=== PATIENT | male | born 1940 | race Caucasian/White ===

== ENCOUNTER 2017-10-16 11:02 | Outpatient (CLI) | payer MEDICARE, OTHER ==
[~2017-10-16] VITALS: Ht 190.5 cm; Wt 92.7 kg
--- NOTE | ~2017-10-16 | TEE ---
PATIENT:SOUTH LEVY MEDICAL RECORD: [id number] LOCATION:D.[facility] AGE OF PATIENT: 77 ADMISSION DATE: 10/16/17 SEX: M REFERRING PHYSICIAN: INTERPRETING PHYSICIAN: NATHAN GREEN MD TRANSESOPHAGEAL ECHOCARDIOGRAM Date: 10/16/17 ESPERANZA CHARGE Y INDICATIONS: ATRIAL FIB, ASSESS FOR CLOTS PREMEDICATIONS: PATIENT'S RESPONSE PROCEDURE DOPPLER MEASUREMENTS: LVIT LA PA RA LVOT RVOT Asc. Ao AV Gradient Peak AV Mean AV Area MV Gradient Peak MV Mean MV Area INTERPRETATION: Doppler: 2-D: NO CLOTS, COLOR FLOW DOPPLER TRACE MR,AI NORMAL SALINE STUDY: MISCELLANOUS: DIAGNOSIS: PLAN: Radio Survey Worker:3 Dr. Jackson Singing Telegram Performer: James HUI COMMENTS: DATE OF SERVICE: 10/16/2017 Transesophageal Note After general sedation via TIVA via anesthesia, transesophageal Omniplane probe was placed into the distal esophagus and proximal stomach without difficulty. FINDINGS: LVH present. LV internal dimension is normal. Wall motion is normal. EF is greater than or equal to 50-55%. Aortic valve is well visualized TRANSESOPHAGEAL ECHOCARDIOGRAM REPORT [id number] SOUTH LEVY with good valve excursion and trivial AI. Left atrium appears normal. Left atrial appendage is well visualized without evidence of thrombus. Doppler interrogation in this area shows good ____ waves. Right-sided chambers appeared grossly normal. Trivial TR ____. IMPRESSION: Proceed to cardioversion. TRANSINT:[id number] Voice Confirmation ID: [id number] DOCUMENT ID: [id number] at 0826 CC: [id number] DICTATION DATE: 10/16/17 1327 JACK WINDER: 10/16/17 1340 DEP CLI 10/16/17 [place] [id number] [place] [id number]
--- NOTE | ~2017-10-16 | OP ---
PATIENT NAME: SOUTH LEVY MEDICAL RECORD: [id number] :36 LOCATION:D.[facility] ADMISSION DATE: SURGEON: NATHAN GREEN MD DATE OF OPERATION: 10/16/2017 PROCEDURE: Cardioversion. DESCRIPTION OF PROCEDURE: After general sedation via TIVA via anesthesia, single synchronized shock with 200 joules successful in restoring atrial fibrillation to normal sinus rhythm. IMPRESSION: Successful cardioversion note. COMPLICATIONS: None. DISPOSITION: To the floor, stable. TRANSINT:[id number] Voice Confirmation ID: [id number] DOCUMENT ID: [id number] NATHAN GREEN MD at 0826 CC: [id number] DICTATION DATE: 10/16/17 1328 CARE ADMINISTRATIVE TECH: 10/16/17 1344 [facility] CLI 10/16/[address] [id number]
--- NOTE | ~2017-10-16 | HEMODYNAMI ---
PATIENT:SOUTH LEVY MEDICAL RECORD: [id number] : 36 LOCATION:[facility] ADMISSION DATE: 10/16/17 Generatedon:10/16/201713:33 Patient name: SOUTH LEVY Patient #: [id number] SSN: DO B: 1940 Date of study: 10/16/2017 Page: Of Hemodynamic Procedure Report Patient Data Patient Demographics Procedure consent was obtained First Name: SOUTH Gender: Male Last Name: MILDRED : 1940 Middle Initial: G Age: 77 year(s) Patient #: [id number] Race: Unknown Additional ID: [id number] Contact details Address: [address] [place] [address] State: [place] City: [facility] Zip code: [address] Past Medical History Allergies: No known allergies Admission Admission Data Admission Date: 10/16/2017 Admission Time: 11:02 Lab Results Lab Result Date: 10/16/2017 Lab Result Time: 0:00 Biochemistry Name Units Result Min Max BUN mg/dl 10 --(-*--)-- 7 18 Creatinine mg/dl 1 --(--*-)-- 0.6 1.3 CBC Name Units Result Min Max Hemoglobin g/dl 16.2 --(--*-)-- 13.5 17.5 Procedure Procedure Types Cath Procedure Diagnostic Procedure Cardioversion External ESPERANZA Procedure Description Procedure Date Procedure Date: 10/16/2017 Procedure Start Time: 13:01 Procedure Staff Name Function Mumtaz Cook MD Performing Physician Gi Lopez RT Monitor Karon Hernandez RT Program Trainer Dimas De Guzman Additional personnel Alphonse Guan Licensed Pharmacist Procedure Data Cath Procedure Estimated blood loss: 0 ml Procedure Complications No complications Procedure Medications Medication Administration Route Dosage Oxygen NC 2 l/min Hurricaine [place] P.O. 1 Sprays Refer to Anesthesia Notes for Sedation Medications Hemodynamics Rest HGB: 16.2 (g/dl) Heart Rate: 75 (bpm) Snapshots Pre Cath Intra NCS Post Cath Vital Signs Time Heart Resp SPO2 etCO2 NIBP (mmHg) Rhythm Pain Sedation Rate (ipm) (%) (mmHg) Status Level (bpm) 13:12:26 69 16 95 0 122/95(105) A-Fib 0 (11) 10(A) , No pain 13:17:09 67 15 95 30.6 101/48(75) A-Fib 0 (11) 9(A) , No pain 13:22:08 72 33 98 0 Measuring A-Fib 0 (11) 9(A) , No pain 13:22:43 48 15 96 0 111/57(78) A-Fib 0 (11) 9(A) , No pain 13:27:52 48 14 97 0 96/55(72) SB 0 (11) 10(A) , No pain 13:32:29 51 18 0 89/52(72) SB 0 (11) 10(A) , No pain Medications Time Medication Route Dose Verified Delivered Reason Notes Effective ness by by 13:15:30 Oxygen NC 2 Mumtaz Pandya used for l/min [facility] procedure MD SANDERS 13:15:39 Hurricaine P[address] 1 Mumtaz Pandya Per [place] Sprays [facility] physician MD SANDERS 13:15:46 Refer to Mumtaz Pandya Anesthesia [facility] Notes for MD SANDERS Sedation Medications Procedure Log Time Note 13:02:18 Karon Hernandez RT(R) sent for patient. Start room use. 13:02:19 Time tracking: Regular hours (M-F 7:00 - 5:00) 13:02:23 Plan of Care:Hemodynamics will remain stable., Cardiac rhythm will remain stable., Comfort level will be maintained., Respiratory function will remain adequate., Patient/ family verbilizes understanding of procedure., Procedure tolerated without complication., Recovers from procedure without complications.. 13:02:40 Quick Combo opened to sterile field. 13:07:04 Patient received from Pre/Post Procedure Room to CCL 1 Alert and oriented. Tansferred to table in Supine position. 13:07:06 Warm blankets applied, and tan hugger turned on for patient comfort. 13:07:06 Correct patient and procedure confirmed by team. 13:07:07 Signed procedure consent form obtained from patient. 13:07:08 ECG and BP/O2 sat monitors applied to patient. 13:07:10 Full Disclosure recording started 13:11:39 H&P Date Dictated: 10/07/2017 Within 30 days and on chart., H&P Addendum completed by physician on day of procedure. (MUST COMPLETE FOR ALL OUTPATIENTS). 13:11:40 Vital chart was started 13:11:50 Baseline sample Acquired. 13:12:16 Rhythm: atrial fibrillation 13:12:20 Pre-procedure instructions explained to patient. 13:12:20 Pre-op teaching completed and patient verbalized understanding. 13:12:23 Family in waiting room. 13:12:25 Patient NPO since Midnight. 13:12:33 Patient allergic to No known allergies 13:12:34 Is the patient allergic to Iodine/contrast media? No. 13:12:36 Is patient on blood thinner?Yes 13:12:39 ACC The patient was administered the following blood thiners within the last 24 hours: Eliquis 13:12:41 Patient diabetic? No. 13:12:44 Previous problem with sedation/anesthesia? No ? 13:12:46 Snore? Yes 13:12:47 Sleep apnea? Yes 13:12:49 Deviated septum? No 13:12:50 Opens mouth fully? Yes 13:12:52 Sticks out tongue? Yes 13:12:53 Airway obstruction? No ? 13:12:55 Dentures? No ? 13:13:02 Patient pain scale 0/10 ?. 13:13:07 IV patent on arrival in left antecubital with 0.9% NaCl at [facility]. 13:13:14 Alarms reviewed by R. N. 13:13:15 Sharps counted by scrub and verified by R.N. 13:13:24 --------ALL STOP TIME OUT------ 13:13:25 Final Timeout: patient, procedure, and site verified with staff and physician. All members of the team are in agreement. 13:13:31 Physical assessment completed. ASA score P 2 - A patient with mild systemic disease as per Mumtza Cook MD. 13:13:34 Sedation plan: TIVA Medication:Propofol 13:13:37 Dimas De Guzman present and monitoring patient for TIVA. 13:14:34 Lab Result : BUN 10 mg/dl 13:14:34 Lab Result : Creatinine 1 mg/dl 13:14:34 Lab Result : Hemoglobin 16.2 g/dl 13:14:37 Lab results completed and on chart. 13:15:30 Oxygen 2 l/min NC was administered by Mumtaz Cook MD; used for procedure; 13:15:39 Hurricaine [place] 1 Sprays P.O. was administered by Mumtaz Cook MD; Per physician; 13:15:46 Refer to Anesthesia Notes for Sedation Medications was administered by Mumtaz Cook MD; ; 13:16:55 Alphonse Guan Miner present for ESPERANZA. 13:16:58 ESPERANZA started. 13:17:45 Quick combo pads placed on patients chest and back. 13:21:21 ESPERANZA completed. 13:21:59 Defibrillator synced and charged to 200 Joules. 13:22:05 Shock delivered. 13:23:33 Patient cardioverted to sinus bradycardia. 13:23:39 Procedure ended.(Physican Out) 13:24:43 Post-procedure physical assessment completed. ASA score P 2 - A patient with mild systemic disease as per Mumtaz Cook MD. 13:24:48 Post procedure rhythm: sinus bradycardia 13:24:50 Estimated blood loss: 0 ml 13:24:51 Post procedure instruction explained to patient.Patient verbalizes understanding. 13:24:52 Patient needs reinforcement of post procedure teaching. 13:25:19 Procedure and supply charges have been captured, reviewed, submitted and are correct. 13:25:22 Procedure Complication : No complications 13:32:39 Vital chart was stopped 13:32:40 See physician's report for complete and final results. 13:32:41 Report given to Pre/Post Procedure Room. 13:32:44 Patient transfered to Pre/Post Procedure Room with Bed. 13:32:48 End room use (Document Last) Device Usage Item Manufacture Quantity Catalog Hospital Part Current Minimal Lot# / Name Number Charge Number Stock Lizette Bautista al# Code Intio 1 [id number] Combo Signature Audit Glide Stage Time Signature Unsigned Intra-Procedure 10/16/2017 Karon Hernandez 1:33:12 PM RT(R) Signatures Monitor : Gi Signature : Counts RT Date : Time : [facility] [address] [place] [address]
[~2017-10-16 11:02] MED LIST: ARICEPT5 MG PO; CALCIUM 600 +1 EAC3 PO; DILANTIN100 MG PO; FISH OIL 1,0001 CA1; FLOMAX0.4 MG PO; MOBIC7.5 MG PO; NAMENDA10 MG PO; XYZAL5 MG PO; ZOCOR20 MG PO; ZOCOR40 MG PO
[2017-10-16] MEDS ORDERED: NAMENDA XR28 MG PO (11:47)
[2017-10-16] MEDS ORDERED: ARICEPT23 MG PO (11:48)
[2017-10-16] MEDS ORDERED: COZAAR100 MG PO (11:48)
[2017-10-16] MEDS ORDERED: LIPITOR20 MG PO (11:49)
[2017-10-16] MEDS ORDERED: NORVASC5 MG PO (11:50)
[2017-10-16] MEDS ORDERED: BETAPACE 80 MG80 MG PO (11:50)
[2017-10-16] MEDS ORDERED: ELIQUIS5 MG PO (11:50)
[2017-10-16 12:02] VITALS: BP 120/82; Ht 190.5 cm; Wt 92.7 kg
[2017-10-16 12:05] LABS: BASOPHILS 0.6 % (0-2); EOSINOPHILS 5.5 % (0-7); HEMATOCRIT 47.5 % (42.0-54.0); HEMOGLOBIN 16.2 g/dL (13.5-17.5); IMMATURE GRANULOCYTES 0.6 % (0-5); LYMPHOCYTES 20.2 % (15-50); MCHC 34.1 g/dL (31.0-37.0); MEAN PLATELET VOLUME 9.3 fL (7.4-10.4); MONOCYTES 10.6 % (2-11); NEUTROPHILS 62.5 % (40-80); PLATELET COUNT 191 10x3/uL (130-400); RBC 5.22 10x6/uL (4.20-6.10); RDW 12.7 % (11.5-14.5); WBC 4.7 10x3/uL (4.8-10.8)
[2017-10-16 12:13] LABS: INR 1.23 (0.85-1.17); PROTIME 15.1 SECONDS (11.6-15.0)
[2017-10-16 12:15] LABS: CALC OSMOLALITY 272 mosm/kg (275-300); CALCIUM 9.4 mg/dL (8.5-10.1); CARBON DIOXIDE 35.3 mmol/L (21.0-32.0); CHLORIDE - SERUM 100 mmol/L (98-107); GLUCOSE 100 mg/dL (74-106); POTASSIUM - SERUM 4.4 mmol/L (3.5-5.1); SODIUM 137 mmol/L (136-145); UREA NITROGEN 10 mg/dL (7-18); eGFR NON AFRICAN AMERICAN 76 mL/min (90-120)
== END 2017-10-16 14:52 | disposition home or self-care (01) ==
LOC: D.CATH 11:02
PROVIDERS: Internal Medicine Interventional Cardiology
DX: I48.91 Unspecified atrial fibrillation (principal); Z01.812 Encounter for preprocedural laboratory examination

== ENCOUNTER → 2018-07-29 09:22 | Outpatient (CLI) | payer MEDICARE, BC ==
[2017-10-16 12:02] VITALS: BMI 25.5
--- NOTE | ~2018-07-29 | EC ---
PATIENT:SOUTH LEVY DATE OF SERVICE: 07/29/18 SEX: M MEDICAL RECORD: [id number] DATE OF : 36 [facility] AGE OF PATIENT: 77 ADMISSION DATE: 07/29/18 REFERRING PHYSICIAN: INTERPRETING PHYSICIAN: NATHAN GREEN MD ECHOCARDIOGRAM REPORT ECHO CHARGES 4 ECHO COMPLETE Date: 07/29/18 CLINICAL DIAGNOSIS: MR/TR ECHOCARDIOGRAPHIC MEASUREMENTS (adult normal given) AC root (d.<3.7cm) 3.4 cm LV Septum d (<1.2 cm> 1.5 cm Valve Excursion 2.5 cm LV Septum (systole) 2.1 cm Left Atria (s.<4.0cm> 4.5 cm LVPW d(<1.2cm) 1.2 cm RV (d.<2.3cm) 3.1 cm LVPW (sytole) 2.0 cm LV diastole(<5.6CM) 5.9 cm MV E-F(>70mm/sec) cm LV systole 3.2 cm LVOT Diameter 2.1 cm MV exc.(>10mm) cm Est.ejection fraction (50-75%) % DOPPLER: LVIT cm/sec A 49.0 cm/sec E 36.0 cm/sec LA cm/sec RVSP 40.4 mmHg LVOT 92.0 cm/sec AOP1/2T m/s Asc. Ao 118 cm/sec RVOT 53.0 cm/sec RA cm/sec PA 86.0 cm/sec AV Gradient Peak 5.6 mmHg AV Mean 2.9 mmHg AV Area 2.7 cm MV Gradient Peak 1.9 mmHg MV Mean 0.37 mmHg MV Area cm COMMENTS: OP - HC Director Summer Sessions: 1 KARSON JOHN Paper Cone Machine Operator: 3 Dr. Jackson TAPE# PACS Pericardial Effusion N DATE OF SERVICE: Adequate 2-D echo, color flow and spectral Doppler, and M-mode. Mild LVH. LV internal dimensions are normal. Wall motion is normal. EF is 55%. Aortic valve is sclerotic. There is no evidence of stenosis by Doppler interrogation. Left atrium is dilated at 4.5 cm. Mitral valve shows no prolapse. Trace MR. Right-sided chamber is grossly normal. Trace TR. TRANSINT:[id number] Voice Confirmation ID: [id number] DOCUMENT ID: [id number] ECHOCARDIOGRAM REPORT [id number] SOUTH LEVY GREGORY A MD CC: [id number] DICTATION DATE: 08/04/18 1129 RICKSHAW DRIVER: 08/04/18 1211 DEP CLI 07/29/18 [place] [id number] [place] [id number]
[~2018-07-29 09:22] MED LIST changes: +ARICEPT23 MG PO; +BETAPACE 80 MG80 MG PO; +COZAAR100 MG PO; +ELIQUIS5 MG PO; +LIPITOR20 MG PO; +NAMENDA XR28 MG PO; +NORVASC5 MG PO
== END | disposition home or self-care (01) ==
LOC: D.HCCARDIO 09:22
PROVIDERS: ATTEND Internal Medicine Interventional Cardiology
DX: I48.91 Unspecified atrial fibrillation (principal)

== ENCOUNTER → 2020-02-17 08:48 | Outpatient (CLI) | payer MEDICARE, BC ==
[2017-10-16 12:02] VITALS: BMI 25.5
--- NOTE | 2020-02-18 09:08 | EC ---
PATIENT:SOUTH LEVY DATE OF SERVICE: 02/17/20 SEX: M MEDICAL RECORD: [id number] DATE OF : 36 LOCATION:D[facility] AGE OF PATIENT: 79 ADMISSION DATE: 02/17/20 REFERRING PHYSICIAN: INTERPRETING PHYSICIAN: NATHAN GREEN MD ECHOCARDIOGRAM REPORT ECHO CHARGES 4 ECHO COMPLETE Date: 02/17/20 CLINICAL DIAGNOSIS: HX OF ATRIAL FIB/HTN ASSESS EF AND VALVES ECHOCARDIOGRAPHIC MEASUREMENTS (adult normal given) AC root (d.<3.7cm) 3.4 cm LV Septum d (<1.2 cm> 1.4 cm Valve Excursion 1.5 cm LV Septum (systole) 1.6 cm Left Atria (s.<4.0cm> 4.0 cm LVPW d(<1.2cm) 1.2 cm RV (d.<2.3cm) 5.2 cm LVPW (sytole) 1.5 cm LV diastole(<5.6CM) 4.9 cm MV E-F(>70mm/sec) cm LV systole 3.2 cm LVOT Diameter 2.1 cm MV exc.(>10mm) 1.6 cm Est.ejection fraction (50-75%) % DOPPLER: LVIT cm/sec A 36.0 cm/sec E 77.0 cm/sec LA cm/sec RVSP 31 mmHg LVOT 60 cm/sec AOP1/2T m/s Asc. Ao 98 cm/sec RVOT 60 cm/sec RA cm/sec PA 85 cm/sec AV Gradient Peak 3.86 mmHg AV Mean 2.17 mmHg AV Area 2.2 cm MV Gradient Peak 2.85 mmHg MV Mean 1.17 mmHg MV Area cm COMMENTS: Retail Furniture Sales: 2 OLIVE HUI Commercial Loan Closer: 3 Dr. Jackson TAPE# PACS Pericardial Effusion N DATE OF SERVICE: 02/17/2020 Adequate 2D, color flow imaging, spectral Doppler, and M-Mode. Mild LVH. LV internal dimensions are normal. Wall motion normal. EF greater than or equal to 55%. Aortic valve is sclerotic. No evidence of stenosis by Doppler interrogation. Left atrium is normal at 4.8 cm. Mitral valve shows no prolapse. Trivial MR. Right-sided chambers are grossly normal. Trivial TR. TRANSINT:[id number] Voice Confirmation ID: [id number] DOCUMENT ID: [id number] ECHOCARDIOGRAM REPORT [id number] SOUTH LEVY GREGORY A MD at 0908 CC: [id number] DICTATION DATE: 02/17/20 1655 TERMINAL MANAGER: 02/18/20 0014 DEP CLI 02/17/20 [place] [id number]
== END | disposition home or self-care (01) ==
LOC: D.HCCECHO 08:48
PROVIDERS: ATTEND Internal Medicine Interventional Cardiology
DX: I48.91 Unspecified atrial fibrillation (principal)